=== PATIENT | female | born 1965 | race Caucasian/White ===

== ENCOUNTER 2017-08-08 08:41 | Emergency (ER) | payer OTHER ==
[2017-08-08] MEDS ORDERED: Albuterol/Ipratropium NEB.SOL* Albuterol 2.5 MG/Ipratropium 0.5 MG 3 ML INH ONE (08:57)
--- NOTE | 2017-08-08 09:02 | UC ---
Throat Pain/Nasal [place] HPI - History of Current Complaint Chief Complaint: UCRash Stated Complaint: RASH - Allergies/Home Medications Allergies/Adverse Reactions: Allergies Allergy/AdvReac Type Severity Reaction Status Date / Time No Known Allergies Allergy Verified 08/08/17 08:49 Home Medications: Home Medications NK [No Home Medications Reported] 08/08/17 [History Confirmed 08/08/17] PMH/Surg Hx/FS Hx/Imm Hx - Surgical History Surgical History: Yes Surgery Procedure, Year, and Place: csection - Social History Alcohol Use: Occasionally Substance Use Type: None Smoking Status (MU): Current Every Day Smoker Physical Exam Vital Signs: Initial Vital Signs Temp 97.2 F 08/08/17 08:43 Pulse 68 08/08/17 08:43 Resp 16 08/08/17 08:43 BP 119/67 08/08/17 08:43 Pulse Ox 99 08/08/17 08:43
--- NOTE | 2017-08-08 09:06 | UC ---
Skin Complaint HPI - HPI Summary HPI Summary: 52 Y/O female presents with C/O skin irritation that began 4 days ago that initially appeared to R clavicle then appeared on R neck and right scalp. Has been using cortisone cream and Benadryl without relief. Skin is tender to touch. No drainage. Denies fever or chills. Medical history and medications reviewed at this visit. - History of Current Complaint Chief Complaint: UCRash Time Seen by Provider: 08/08/17 08:55 Stated Complaint: RASH Hx Obtained From: Patient Onset/Duration: Sudden Onset, Lasting Days Timing: Constant Onset Severity: Mild Current Severity: Moderate Pain Intensity: 0 - Painful with light touch Pain Scale Used: 0-10 Numeric Location: Other - right clavicle, neck and scalp Character: Pruritus, Redness, Raised, Painful Aggravating Factor(s): Touch Alleviating Factor(s): Nothing Associated Signs & Symptoms: Positive: Negative - Allergy/Home Medications Allergies/Adverse Reactions: Allergies Allergy/AdvReac Type Severity Reaction Status Date / Time No Known Allergies Allergy Verified 08/08/17 08:49 Review of Systems Constitutional: Negative Skin: Rash Eyes: Negative ENT: Negative Respiratory: Negative Cardiovascular: Negative Gastrointestinal: Negative Genitourinary: Negative Motor: Negative Neurovascular: Negative Musculoskeletal: Negative Neurological: Negative Psychological: Negative Is Patient Immunocompromised?: No All Other Systems Reviewed And Are Negative: Yes PMH/Surg Hx/FS Hx/Imm Hx Previously Healthy: Yes - Surgical History Surgical History: Yes Surgery Procedure, Year, and Place: csection - Social History Alcohol Use: Occasionally Substance Use Type: None Smoking Status (MU): Current Every Day Smoker Physical Exam Triage Information Reviewed: Yes Appearance: Well-Appearing Vital Signs: Initial Vital Signs Temp 97.2 F 08/08/17 08:43 Pulse 68 08/08/17 08:43 Resp 16 08/08/17 08:43 BP 119/67 08/08/17 08:43 Pulse Ox 99 08/08/17 08:43 Neck: Positive: Supple Respiratory Exam: Normal Respiratory: Positive: Lungs clear Cardiovascular Exam: Normal Cardiovascular: Positive: RRR Musculoskeletal Exam: Normal Neurological Exam: Normal Psychological Exam: Normal Skin Exam: Normal Course/Dx - Differential Diagnoses - Skin Complaint Differential Diagnoses: Allergic Reaction, Local Allergic Reaction, Varicella Zoster - Diagnoses Provider Diagnoses: Herpes Zoster Discharge - Discharge Plan Condition: Stable Disposition: HOME Patient Education Materials: Shingles (ED) Additional Instructions: Please take medication as directed. Follow up with your primary medical provider when you get home if symptoms worsen or are not gradually improving. Return to urgent care as needed.
--- NOTE | 2017-08-08 10:54 | ED ---
Progress - Progress Note Progress Note: Pt called [facility] did not have full quantity Pt leaving [facility] tomorrow spoke with hesham - confirmed full supply resent Rx to [facility] to cancel at [facility] and update pt Course/Dx - Diagnoses Provider Diagnoses: Raul
== END 2017-08-08 09:44 | disposition home or self-care (01) ==
LOC: UCEAST 08:41
DX: B02.9 Zoster without complications (principal); F17.210 Nicotine dependence, cigarettes, uncomplicated
CPT/HCPCS: 99202; G0463